=== PATIENT | male | born 1940 | race African-American/Black ===

== ENCOUNTER 2019-11-01 00:56 | Emergency (ER) | payer OTHER ==
[~2019-11-01] VITALS: Ht 177.8 cm; Wt 78.0 kg
[2019-11-01 03:08] LABS: BASOPHILS % 0.4 % (0.0-2.0); EOSINOPHILS % 0.2 % (0.0-5.0); HEMATOCRIT. 41.1 % (42.0-52.0); HEMOGLOBIN. 13.5 g/dL (14.0-18.0); LYMPHOCYTES % 11.2 % (20.0-50.0); MEAN CORPUSCULAR HEMOGLOBIN 28.4 pg (28.0-32.0); MEAN CORPUSCULAR VOLUME 86.7 fL (80.0-94.0); MEAN PLATELET VOLUME 9.6 fl (7.4-10.4); MONOCYTES % 8.8 % (2.0-8.0); NEUTROPHILS % 79.4 % (40.0-76.0); PLATELET 141 x1000/uL (130-400); RED BLOOD CELL COUNT 4.74 mill/uL (4.7-6.1); RED CELL DISTRIBUTION WIDTH 14.4 % (11.6-14.6)
[2019-11-01 03:10] LABS: CHLORIDE 110 mEq/L (98-107)
[2019-11-01 03:15] LABS: ETHANOL BLOOD < 10 mg/dL
[2019-11-01 04:27] LABS: CLARITY URINE CLEAR (CLEAR); COLOR URINE DK YELLOW (YELLOW); KETONES URINE 1+ (NEGATIVE); LEUKOCYTE ESTERASE URINE NEGATIVE (NEGATIVE); NITRITE URINE NEGATIVE (NEGATIVE); OCCULT BLOOD URINE 1+ (NEGATIVE); PROTEIN URINE NEGATIVE (NEGATIVE); SPECIFIC GRAVITY URINE 1.024 (1.005-1.030)
[2019-11-01 04:37] LABS: *AMPHETAMINES SCREEN URINE NEGATIVE (NEGATIVE); *BARBITURATES SCREEN URINE NEGATIVE (NEGATIVE); *BENZODIAZEPINES SCREEN URINE NEGATIVE (NEGATIVE); *COCAINE SCREEN URINE NEGATIVE (NEGATIVE); METHADONE URINE SCREEN NEGATIVE (NEGATIVE)
[2019-11-01 04:38] LABS: CANNABINOID URINE SCREEN NEGATIVE (NEGATIVE); OPIATES URINE SCREEN NEGATIVE (NEGATIVE); PHENCYCLIDINE URINE SCREEN NEGATIVE (NEGATIVE)
[2019-11-01 11:50] VITALS: BP 140/89
== END 2019-11-01 12:00 | disposition home or self-care (01) ==
LOC: ER 00:56
DX: F03.90 Unspecified dementia, unspecified severity, without behavioral disturbance, psychotic disturbance, mood disturbance, and anxiety (principal); Z91.83 Wandering in diseases classified elsewhere; G93.40 Encephalopathy, unspecified
CPT/HCPCS: 36415; 80053; 80305; 80320; 81003; 85025; 99284; G0480

== ENCOUNTER 2020-02-21 18:26 | Inpatient (IN) | payer OTHER ==
[~2020-02-21] VITALS: Ht 167.6 cm; Wt 75.7 kg
[2020-02-21 21:48] LABS: BASOPHILS % 0.7 % (0.0-2.0); EOSINOPHILS % 0.6 % (0.0-5.0); HEMATOCRIT. 40.4 % (42.0-52.0); HEMOGLOBIN. 13.1 g/dL (14.0-18.0); MEAN CORPUSCULAR HEMOGLOBIN 27.8 pg (28.0-32.0); MEAN CORPUSCULAR VOLUME 85.7 fL (80.0-94.0); MEAN PLATELET VOLUME 9.6 fl (7.4-10.4); MONOCYTES % 10.3 % (2.0-8.0); NEUTROPHILS % 68.4 % (40.0-76.0); PLATELET 150 x1000/uL (130-400); RED BLOOD CELL COUNT 4.71 mill/uL (4.7-6.1); RED CELL DISTRIBUTION WIDTH 15.3 % (11.6-14.6)
[2020-02-21 21:51] LABS: CHLORIDE 111 mEq/L (98-107)
[2020-02-21 21:57] LABS: ETHANOL BLOOD < 10 mg/dL
[2020-02-21] MEDS ORDERED: ASPIRIN 81MG TABLET PO NR (23:30)
[2020-02-21] MEDS ORDERED: CEFTRIAXONE 1 G PREMIX 50 ML IV NR (23:30)
[2020-02-21] MEDS ORDERED: LORAZEPAM 2MG/ML CPJ IM ONE (23:30)
[2020-02-21] MEDS ORDERED: AZITHROMYCIN 500 MG in DEXT 5% WATER 250 ML IV SCH (23:30)
[2020-02-21 23:48] LABS: CLARITY URINE CLEAR (CLEAR); COLOR URINE DARK YELLOW (YELLOW); KETONES URINE TRACE (NEGATIVE); LEUKOCYTE ESTERASE URINE 1+ (NEGATIVE); NITRITE URINE NEGATIVE (NEGATIVE); OCCULT BLOOD URINE NEGATIVE (NEGATIVE); PROTEIN URINE NEGATIVE (NEGATIVE); SPECIFIC GRAVITY URINE 1.028 (1.005-1.030)
[2020-02-22] MEDS ORDERED: RISPERIDONE 0.5MG TABLET PO ONE
[2020-02-22 00:04] LABS: *AMPHETAMINES SCREEN URINE NEGATIVE (NEGATIVE); *BARBITURATES SCREEN URINE NEGATIVE (NEGATIVE); *BENZODIAZEPINES SCREEN URINE NEGATIVE (NEGATIVE); *COCAINE SCREEN URINE NEGATIVE (NEGATIVE); CANNABINOID URINE SCREEN NEGATIVE (NEGATIVE); METHADONE URINE SCREEN NEGATIVE (NEGATIVE); OPIATES URINE SCREEN NEGATIVE (NEGATIVE); PHENCYCLIDINE URINE SCREEN NEGATIVE (NEGATIVE)
[2020-02-22] MEDS ORDERED: MAGNESIUM/ALUMINUM HYDROXIDE/SIMETHICONE 30ML UDC PO PRN (03:30)
[2020-02-22] MEDS ORDERED: ACETAMINOPHEN 325MG TABLET PO PRN (03:30)
[2020-02-22] MEDS ORDERED: GUAIFENESIN 200MG/10ML SUGAR FREE UDC PO PRN (03:30)
[2020-02-22] MEDS ORDERED: CLONIDINE 0.1MG TABLET PO PRN (03:30)
[2020-02-22] MEDS ORDERED: ONDANSETRON HCL 4MG/2ML INJ IV PRN (03:30)
[2020-02-22] MEDS ORDERED: DOCUSATE SODIUM 100MG CAPSULE PO PRN (03:30)
[2020-02-22 06:30] VITALS: BP 128/92
[2020-02-22 08:00] VITALS: BP 116/83
[2020-02-22] MEDS: ENOXAPARIN 40MG/0.4ML SYR SUBCUT SCH (10:31)
[2020-02-22] MEDS: MULTIVITAMINS,THER W-MINERALS TABLET PO SCH (10:31)
[2020-02-22 12:00] VITALS: BP 116/68
[2020-02-22 16:00] VITALS: BP 153/96
[2020-02-22] MEDS: LORAZEPAM 2MG/ML CPJ IV PRN ×2 (18:23→22:47)
[2020-02-22 20:00] VITALS: BP 109/72
[2020-02-22] MEDS ORDERED: AZITHROMYCIN 500 MG in DEXT 5% WATER 250 ML IV SCH (21:00)
[2020-02-22] MEDS ORDERED: CEFTRIAXONE 1 G PREMIX 50 ML IV SCH (22:00)
[2020-02-22] MEDS: DEXT 5%/0.45% NACL 1000ML 1,000 ML IV SCH (22:57)
[2020-02-23] VITALS: BP 112/67
[2020-02-23 04:00] VITALS: BP 131/85
[2020-02-23] MEDS ORDERED: ATOR40TA70 MT (04:12)
[2020-02-23 08:00] VITALS: BP 130/84
[2020-02-23] MEDS: IPRATROPIUM/ALBUTEROL 0.5-3(2.5)MG/3ML NEB HHN SCH ×2 (09:04→15:42)
[2020-02-23] MEDS: LORAZEPAM 2MG/ML CPJ IV PRN (09:19)
[2020-02-23] MEDS: MULTIVITAMINS,THER W-MINERALS TABLET PO SCH (09:19)
[2020-02-23] MEDS: DEXT 5%/0.45% NACL 1000ML 1,000 ML IV SCH (09:20)
[2020-02-23] MEDS: ENOXAPARIN 40MG/0.4ML SYR SUBCUT SCH (09:20)
[2020-02-23 09:41] LABS: CHLORIDE 109 mEq/L (98-107)
[2020-02-23 09:46] LABS: BASOPHILS % 0.3 % (0.0-2.0); EOSINOPHILS % 0.6 % (0.0-5.0); HEMATOCRIT. 38.8 % (42.0-52.0); MEAN CORPUSCULAR HEMOGLOBIN 28.4 pg (28.0-32.0); MEAN PLATELET VOLUME 9.6 fl (7.4-10.4); MONOCYTES % 9.3 % (2.0-8.0); NEUTROPHILS % 72.8 % (40.0-76.0); PLATELET 128 x1000/uL (130-400); RED BLOOD CELL COUNT 4.57 mill/uL (4.7-6.1); RED CELL DISTRIBUTION WIDTH 14.8 % (11.6-14.6)
[2020-02-23 12:00] VITALS: BP 118/79
[2020-02-23 15:17] VITALS: BP 118/79
[2020-02-23 16:00] VITALS: BP 148/83
[2020-02-23] MEDS ORDERED: FAMOTIDINE 20MG TABLET PO SCH (21:00)
[2020-02-23] MEDS ORDERED: CEFTRIAXONE 1,000 MG in DEXTROSE 5% WATER 50 ML IV SCH (22:00)
== END 2020-02-23 19:26 | disposition short-term general hospital (02) | DRG 70 ==
LOC: ER 18:26 → 5WST 02-22 00:38 → EDBEDREQ 02-22 00:48 → ENRESERV 02-22 04:10
PROVIDERS: ADMIT Ophthalmology; ATTEND Ophthalmology
DX: G93.40 Encephalopathy, unspecified (principal); J18.9 Pneumonia, unspecified organism; F03.91 Unspecified dementia, unspecified severity, with behavioral disturbance; E86.0 Dehydration; G31.9 Degenerative disease of nervous system, unspecified; R79.89 Other specified abnormal findings of blood chemistry; D69.6 Thrombocytopenia, unspecified; D64.9 Anemia, unspecified; Z91.83 Wandering in diseases classified elsewhere
CPT/HCPCS: 36415; 71045; 80053; 80305; 80307; 80320; 80329; 81003; 82140; 84443; 84484; 85025; 93005; 93970; 96365; 99285; J0456; J0696; J1650; J2060; J7060; G0480